=== PATIENT | female | born 1985 | race Caucasian/White ===

== ENCOUNTER 2017-08-11 22:48 | Inpatient (IN) | payer OTHER ==
[~2017-08-11] VITALS: Ht 162.6 cm; Wt 80.3 kg
[2017-08-11 23:00] VITALS: BP 120/69
[2017-08-11 23:28] LABS: BILIRUBIN,URINE NEGATIVE (NEGATIVE); KETONES,URINE NEGATIVE (NEGATIVE); LEUKOCYTE ESTERASE ,URINE 3+ (NEGATIVE); NITRITE,URINE POSITIVE (NEGATIVE); PH,URINE 7 (5-9); PROTEIN,URINE 1+ (NEGATIVE); UROBILINOGEN,URINE 1 MG/DL (NORMAL)
[2017-08-11] MEDS ORDERED: METOCLOPRAMIDE INJ 10 MG/2 ML (REGLAN) IV ONE (23:30)
[2017-08-11] MEDS ORDERED: FAMOTIDINE 20MG/2ML IV (PEPCID) IV ONE (23:30)
[2017-08-11] MEDS ORDERED: CITRIC ACID/SOB CIT (BICITRA) 30 ML UDC PO ONE (23:30)
--- NOTE | 2017-08-11 23:34 | History & Physical-OB ---
OB - Chief Complaint & HPI Date/Time Date of Admission: Date of Admission: Aug 11, 2017 at 23:10 Time Seen by Provider: 00:00 Chief Complaint/History OB-Reason for Admission/Chief: Onset of Labor Hx : 7 Hx Para: 6 Hx Last Menstrual Period: 11/19/16 Expected Date of Delivery: Aug 26, 2017 Gestational Age in Weeks: 38 Gestational Age in Days: 0 Other reason for admission: this is a 32-year-old 7 para 6 female with no local physician who presented with complaints of rupture of membranes approximately 10 p.m. The patient states she has been having pain off and on for about 6 hours. [id number] in [place]. She states that she saw this person 4 days prior to arrival and was "cleared to go". The patient has a previous history of 5 spontaneous vaginal deliveries and then one 2 years ago of a 34 week failure to progress with nonreassuring status. She was told 4 days ago that her baby was "sideways" and that she did not be able to deliver vaginally. She has had no vaginal bleeding. She is reportedly group B strep positive and has been through all of her pregnancies. Past medical history is significant for a seizure disorder. She states these are "mild", and she is supposed to be taking Tegretol. She states however that she is not taking this during her . She states that she take it because it made her sleepy. That she does reportedly take a sleeping pill. She states her last seizure was 3 weeks ago, after she ran into a wall while chasing her children. She also has a previous history of hepatitis C with no treatment. She states she found out with her 4 years ago. She does not know her status. She does state that she has had a liver biopsy and has a "mass in her liver", and she had this mass removed. She states the "check it every 6 months" she has a history of cholecystectomy and then had residual stones in the liver" the pancreas" so sounds as though she had an ERCP. She does have a history of asthma but does not use her inhaler as she is supposed to. She reports no history of hospitalization or intubation. She reports an anaphylactic reaction to penicillin. Currently she is grossly ruptured. Gestational age is estimated based only on her recollection of last menstrual period and EDC. However fundal height today is 36-37. She reportedly is4 cm dilated based on nursing exam. She is chandni every 4-6 minutes. And these are becoming more painful and closer together. there has been no vaginal bleeding. On Spencer exam, she is not transverse. History of Labs labs have been drawn, including HbSAg, HIV, Hep C, Rubella, CBC, CMP. UDS Many are pending but labs as below... Laboratory Tests Test 08/11/17 23:20 08/11/17 23:25 Range/Units White Blood Count 16.9 H 4.3-11.0 10^3/uL Red Blood Count 3.51 L 4.35-5.85 10^6/uL Hemoglobin 10.9 L 11.5-16.0 G/DL Hematocrit 32 L 35-52 % Mean Corpuscular Volume 92 80-99 FL Mean Corpuscular Hemoglobin 31 25-34 PG Mean Corpuscular Hemoglobin Concent 34 32-36 G/DL Red Cell Distribution Width 12.8 10.0-14.5 % Platelet Count 242 130-400 10^3/uL Mean Platelet Volume 11.6 H 7.4-10.4 FL Neutrophils (%) (Auto) 79 H 42-75 % Lymphocytes (%) (Auto) 13 12-44 % Monocytes (%) (Auto) 7 0-12 % Eosinophils (%) (Auto) 1 0-10 % Basophils (%) (Auto) 0 0-10 % Neutrophils # (Auto) 13.3 H 1.8-7.8 X 10^3 Lymphocytes # (Auto) 2.2 1.0-4.0 X 10^3 Monocytes # (Auto) 1.2 H 0.0-1.0 X 10^3 Eosinophils # (Auto) 0.1 0.0-0.3 10^3/uL Basophils # (Auto) 0.0 0.0-0.1 10^3/uL Sodium Level 136 135-145 MMOL/L Potassium Level 3.4 L 3.6-5.0 MMOL/L Chloride Level 107 98-107 MMOL/L Carbon Dioxide Level 18 L 21-32 MMOL/L Anion Gap 11 5-14 MMOL/L Blood Urea Nitrogen 5 L 7-18 MG/DL Creatinine 0.62 0.60-1.30 MG/DL Estimat Glomerular Filtration Rate > 60 BUN/Creatinine Ratio 8 Glucose Level 131 H 70-105 MG/DL Calcium Level 8.9 8.5-10.1 MG/DL Total Bilirubin 0.8 0.1-1.0 MG/DL Aspartate Amino Transf (AST/SGOT) 11 5-34 U/L Alanine Aminotransferase (ALT/SGPT) 7 0-55 U/L Alkaline Phosphatase 207 H 40-136 U/L Total Protein 6.4 6.4-8.2 GM/DL Albumin 2.9 L 3.2-4.5 GM/DL Urine Color YELLOW Urine Clarity VERY CLOUDY H Urine pH 7 5-9 Urine Specific [place] 1.015 L 1.016-1.022 Urine Protein 1+ H NEGATIVE Urine Glucose (UA) NEGATIVE NEGATIVE Urine Ketones NEGATIVE NEGATIVE Urine Nitrite POSITIVE H NEGATIVE Urine Bilirubin NEGATIVE NEGATIVE Urine Urobilinogen 1 NORMAL MG/DL Urine Leukocyte Esterase 3+ H NEGATIVE Urine RBC (Auto) 3+ H NEGATIVE Urine RBC 5-10 H /HPF Urine WBC 25-50 H /HPF Urine Squamous Epithelial Cells 5-10 /HPF Urine Crystals NONE /LPF Urine Amorphous Sediment LARGE ADALBERTO URATES H /LPF Urine Bacteria FEW H /HPF Urine Casts NONE /LPF Urine Mucus NEGATIVE /LPF Urine Culture Indicated YES Urine Opiates Screen NEGATIVE NEGATIVE Urine Oxycodone Screen NEGATIVE NEGATIVE Urine Methadone Screen NEGATIVE NEGATIVE Urine Propoxyphene Screen NEGATIVE NEGATIVE Urine Barbiturates Screen NEGATIVE NEGATIVE Ur Tricyclic Antidepressants Screen NEGATIVE NEGATIVE Urine Phencyclidine Screen NEGATIVE NEGATIVE Urine Amphetamines Screen POSITIVE H NEGATIVE Urine Methamphetamines Screen NEGATIVE NEGATIVE Urine Benzodiazepines Screen NEGATIVE NEGATIVE Urine Cocaine Screen NEGATIVE NEGATIVE Urine Cannabinoids Screen NEGATIVE NEGATIVE Allergies and Home Medications Allergies Coded Allergies: Penicillins (Verified Allergy, Severe, ANAPHYLAXIS, 08/11/17) OB - History Hx of Present Ultrasounds: Other (unknown. Does report having an ultrasound to give her the due date. She states that this was the only one she had during the .) Obstetrical Complications: Other (unknown) Medical Complications: Other (previous history of hepatitis C untreated. history of asthma, history of group B strep.) Information Induced Hypertension: Yes (does report a history of preeclampsia) Maternal Gestational Diabetes: No Hemorrhage: No Obstetrical History Hx : 7 Hx Para: 6 (she reports that this is the furthest she has gotten with any . Her last was reportedly at 34 weeks. But we have no records) Number of Living Children: 6 Hx Termination: No Hx Multiple Gestation: No Hx Ectopic : No Hx Stillbirth: No Hx Complication: Yes Hx Induced Hypertens: Yes Hx Maternal Gestational Diabet: No Hx Hemorrhage: Yes (with last ) Delivery History Hx Dystocia: No Hx Forceps Assisted Delivery: No Hx Vacuum Extraction Assisted: No Hx Placenta Abnormality: No Hx Distress: Yes Hx Large For Gestational Age I: No Hx Small for Gestational Age I: No Hx Section: Yes Hx Vaginal Delivery Post C-Sec: No Hx Blood Disorders: No Adverse Rxn to Tranfusion: No Patient Past Medical History nc Social History/Family History HIV/AIDS: No Recent Infectious Disease Expo: No Sexually Transmitted Disease: No (unknown) Alcohol Use: Past History Recreational Drug Use: Yes (reports no history of drug use) Smoking Cessation: Current every day smoker Immunizations Hepatitis A: No Hepatitis B: No Rubella: unknown RPR/VDRL: Unknown GBS Status: Positive HBsAG: Unknown OB - Admission Exam Physical Exam Vitals: see RN notes Heart: Rhythm Normal Lungs: Clear, Equal Abdomen: Gravid (FH 37) Extremities: Normal Reflexes: Normal Cervical Dilatation: 4cm Effacement: 75% Station: -1 Membranes: Ruptured Amniotic Fluid: Clear Heart Rate: 130's Decelerations: No Decelerations Short Term Variability: Present Penitentiary Variability: Average (6-25) Contractions on Admission: 6-10 Minutes Apart Intensity: Moderate Labs Laboratory Tests Test 08/11/17 23:25 Range/Units OB - Assessment/Plan/Diagnosis Assessment Assessment: active labor, rupture of membranes Plan Plan: Section Other Plan Plan emergency section. Risks of bleeding, infection, injury to bowel , bladder or ureter. Prophylactic SCDs. Vancomycin given for GBS and history of anaphylaxis. Zithromax due to ROM and unknown chlamydia. Hep C Possible seizure disorder + methamphetamine MARGARETTE TERRY DO Aug 11, 2017 23:34
[2017-08-11] MEDS ORDERED: AZITHROMYCIN 500 MG (ZITHROMAX) VIAL ONE (23:38)
[2017-08-11] MEDS ORDERED: NS (IVPB) 250 ML ONE ×2 (23:39→23:40)
[2017-08-11 23:40] LABS: WBC,URINE 25-50 /HPF
[2017-08-11] MEDS ORDERED: VANCOMYCIN 1000 MG/VIAL ONE (23:40)
[2017-08-11 23:42] LABS: BASOPHILS % (AUTO) 0 % (0-10); EOSINOPHILS # (AUTO) 0.1 10^3/uL (0.0-0.3); EOSINOPHILS % (AUTO) 1 % (0-10); LYMPHOCYTES # (AUTO) 2.2 X 10^3 (1.0-4.0); LYMPHOCYTES % (AUTO) 13 % (12-44); MEAN CORPUSCULAR HEMOGLOBIN 31 PG (25-34); MEAN CORPUSCULAR HGB CONC 34 G/DL (32-36); MEAN CORPUSCULAR VOLUME 92 FL (80-99); MEAN PLATELET VOLUME 11.6 FL (7.4-10.4); MONOCYTES # (AUTO) 1.2 X 10^3 (0.0-1.0); MONOCYTES % (AUTO) 7 % (0-12); NEUTROPHILS # (AUTO) 13.3 X 10^3 (1.8-7.8); NEUTROPHILS % (AUTO) 79 % (42-75); PLATELET COUNT 242 10^3/uL (130-400); RED BLOOD COUNT 3.51 10^6/uL (4.35-5.85); RED CELL DISTRIBUTION WIDTH 12.8 % (10.0-14.5); WHITE BLOOD COUNT 16.9 10^3/uL (4.3-11.0)
[2017-08-11] MEDS ORDERED: VANCOMYCIN INJECTION 2,000 MG in NS IV 500 ML 500 ML IV ONE (23:45)
[2017-08-11] MEDS ORDERED: AZITHROMYCIN INJECTION 500 MG in NS (IVPB) 250 ML IV ONE (23:45)
[2017-08-11 23:55] LABS: ALANINE AMINOTRANSFERASE 7 U/L (0-55); ALBUMIN 2.9 GM/DL (3.2-4.5); ANION GAP 11 MMOL/L (5-14); ASPARTATE AMINO TRANSFERASE 11 U/L (5-34); BILIRUBIN,TOTAL 0.8 MG/DL (0.1-1.0); BLOOD UREA NITROGEN 5 MG/DL (7-18); BUN/CREATININE RATIO 8; CALCIUM 8.9 MG/DL (8.5-10.1); CARBON DIOXIDE 18 MMOL/L (21-32); CHLORIDE 107 MMOL/L (98-107); CREATININE SERUM 0.62 MG/DL (0.60-1.30); GFR ESTIMATED > 60; GLUCOSE 131 MG/DL (70-105); POTASSIUM 3.4 MMOL/L (3.6-5.0); SODIUM 136 MMOL/L (135-145); TOTAL PROTEIN 6.4 GM/DL (6.4-8.2)
[2017-08-11] MEDS: LACTATED RINGERS 1,000 ML IV PRN (23:55)
[2017-08-12] MEDS ORDERED: ONDANSETRON 4 MG/2 ML (SDV) Z0FRAN ONE (00:02)
[2017-08-12] MEDS ORDERED: OXYTOCIN/NORMAL SALINE 500 ML IV ONE (00:03)
[2017-08-12] MEDS ORDERED: fentaNYL INJECTION 100 MCG/2 ML AMP ONE (00:03)
[2017-08-12 00:19] LABS: BASOPHILS % (MANUAL) 1 %; LYMPHOCYTES % (MANUAL) 19 %; NEUTROPHILS % (MANUAL) 78 %
[2017-08-12] MEDS ORDERED: KETAMINE HCL 100 MG/ML 5 ML VIAL ONE (00:27)
[2017-08-12] MEDS ORDERED: LACTATED RINGERS 1,000 ML IV ONE (00:57)
[2017-08-12] MEDS: LACTATED RINGERS 1,000 ML IV PRN (01:08)
[2017-08-12] MEDS ORDERED: DEXAMETHASONE 10 MG/ML (DECADRON) 1 ML VIAL ONE (01:09)
[2017-08-12] MEDS ORDERED: diphenhydrAMINE 50 MG/ML INJ (BENADRYL) ONE (01:09)
[2017-08-12] MEDS ORDERED: OXYTOCIN/NORMAL SALINE 500 ML IV SCH (01:12)
[2017-08-12] MEDS ORDERED: D5 LR IV SOLUTION 1,000 ML IV SCH (01:12)
[2017-08-12] MEDS ORDERED: MEASLES,MUMPS,RUBELLA 1 EA INJ SC SCH (01:15)
[2017-08-12] MEDS ORDERED: TETANUS,DIPTH,PERTUSS P/F (BOOSTRIX) 0.5 ML VIAL IM SCH (01:15)
[2017-08-12] MEDS ORDERED: ONDANSETRON 4 MG/2 ML (SDV) Z0FRAN IVP PRN (01:15)
[2017-08-12] MEDS ORDERED: HYDROmorphone (DILAUDID) 2 MG/ML VIAL IVP PRN (01:15)
--- NOTE | 2017-08-12 01:17 | Cesarean Section Operative ---
Procedure Procedure Note Pre-operative Diagnosis: Pamela Awan is a 32 /Para 7 / 6, Gestational Age 38 weeks, No local physiciaion, ROM, labor, G BS +, Hep C + Post-operative Diagnosis: same Procedure: Repeat low transverse section Physician: MARGARETTE TERRY Log Inspector: CHRISTEN Palacios Estimated blood loss: 600 mL Disposition: stable Findings: Viable [male infant, Apgars 8/9, weight 7#9oz, intact placenta, 3vc with true know, normal appearing uterus, tubes, and ovaries. Indications:Pamela Awan is a 32 /Para 7 / 6,Gestational Age 38 weeks, No local physiciaion, ROM, labor, G BS +, Hep C + Procedure Details: The patient was seen in pre-op and the procedure was discussed with the patient in full, including the risks, benefits, and alternatives. All questions were answered. The patient was taken to the operating room and a time out was performed, verifying patient and procedure. After spinal anesthesia was placed by our anesthesia colleagues, the patient was placed in the dorsal supine with leftward tilt for uterine displacement.~ Her abdomen was then prepped and draped in the typical sterile fashion. A Pfannenstiel skin incision was made using a scalpel and carried down through the underlying fascia. The fascia was incised in the midline and tented up using Nella clamps. On both the inferior and superior fascia side the rectus muscle was dissected off bluntly and sharply using El scissors. The peritoneum was identified and entered bluntly in the midline. This was then stretched laterally using manual strength. After entering the abdominal cavity and confirming lack of intraperitoneal adhesions, a large Harvey retractor was placed and the lower uterine segment was visualized. A bladder flap was created with the use of Metzenbaum scissors.~ A scalpel was utilized to make a low transverse uterine incision. Amniotomy was performed with an Allis clamp with return of clear fluid. The 's head was grasped and brought to the level of the incision. Fundal pressure was applied and was delivered without difficulty. Mouth and nares were suctioned with bulb suction. After the umbilical cord was clamped and cut, the was handed off to the pediatric staff. A sample of cord blood was then obtained. The placenta was delivered intact via uterine massage. The uterus was exteriorized and cleared of all clots and debris. The uterine incision was closed using 0 Vicryl in a running locked fashion. A second imbricated layer was placed using 0 Vicryl in a running fashion as well. The uterus was flexed forward and the posterior rectouterine space was inspected and cleared of all clots and debris. Again the hysterotomy site was examined and hemostasis was observed. The bilateral tubes and ovaries appeared normal. The uterus was placed back into the abdominal cavity and abdominal gutters were cleared of all clots and debris. A final check of the uterine incision showed it to be hemostatic. The peritoneum was closed using 3-0 Vicryl in a running fashion. The fascia was closed with 0 Vicryl in a running fashion. The subcutaneous space was hemostatic, and irrigated. The subcutaneous space was closed with 3-0 Vicryl in several single interrupted stitches. The skin was then closed using 4- 0 Monocryl in a running subcuticular fashion. The skin edges were reapproximated together and were hemostatic. A pressure dressing was applied. All sponge, lap and needle counts were correct at the end of the procedure per nursing. Vitals - Labs Labs Laboratory Tests 08/11/17 23:20: White Blood Count 16.9H, Red Blood Count 3.51L, Hemoglobin 10.9L, Hematocrit 32L , Mean Corpuscular Volume 92, Mean Corpuscular Hemoglobin 31, Mean Corpuscular Hemoglobin Concent 34, Red Cell Distribution Width 12.8, Platelet Count 242, Mean Platelet Volume 11.6H, Neutrophils (%) (Auto) 79H, Lymphocytes (%) (Auto) 13, Monocytes (%) (Auto) 7, Eosinophils (%) (Auto) 1, Basophils (%) (Auto) 0, Neutrophils # (Auto) 13.3H, Lymphocytes # (Auto) 2.2, Monocytes # (Auto) 1.2H, Eosinophils # (Auto) 0.1, Basophils # (Auto) 0.0, Neutrophils % (Manual) 78, Lymphocytes % (Manual) 19, Monocytes % (Manual) 2, Basophils % (Manual) 1, Blood Morphology Comment NORMAL, Sodium Level 136, Potassium Level 3.4L, Chloride Level 107, Carbon Dioxide Level 18L, Anion Gap 11, Blood Urea Nitrogen 5L, Creatinine 0.62, Estimat Glomerular Filtration Rate > 60, BUN/Creatinine Ratio 8, Glucose Level 131H, Calcium Level 8.9, Total Bilirubin 0.8, Aspartate Amino Transf (AST/SGOT) 11, Alanine Aminotransferase (ALT/SGPT) 7, Alkaline Phosphatase 207H, Total Protein 6.4, Albumin 2.9L 08/11/17 23:25: Urine Color YELLOW, Urine Clarity VERY CLOUDYH, Urine pH 7, Urine Specific [place] 1.015L, Urine Protein 1+H, Urine Glucose (UA) NEGATIVE, Urine Ketones NEGATIVE, Urine Nitrite POSITIVEH, Urine Bilirubin NEGATIVE, Urine Urobilinogen 1, Urine Leukocyte Esterase 3+H, Urine RBC (Auto) 3+H, Urine RBC 5-10H, Urine WBC 25-50H, Urine Squamous Epithelial Cells 5-10, Urine Crystals NONE, Urine Amorphous Sediment LARGE ADALBERTO URATESH, Urine Bacteria FEWH, Urine Casts NONE, Urine Mucus NEGATIVE, Urine Culture Indicated YES, Urine Opiates Screen NEGATIVE , Urine Oxycodone Screen NEGATIVE, Urine Methadone Screen NEGATIVE, Urine Propoxyphene Screen NEGATIVE, Urine Barbiturates Screen NEGATIVE, Ur Tricyclic Antidepressants Screen NEGATIVE, Urine Phencyclidine Screen NEGATIVE, Urine Amphetamines Screen POSITIVEH, Urine Methamphetamines Screen NEGATIVE, Urine Benzodiazepines Screen NEGATIVE, Urine Cocaine Screen NEGATIVE, Urine Cannabinoids Screen NEGATIVE 08/12/17 00:01: MARGARETTE TERRY DO Aug 12, 2017 01:17
[2017-08-12] MEDS: KETOROLAC 30 MG/ML VIAL IVP SCH ×3 (03:09→19:48)
[2017-08-12] MEDS ORDERED: diphenhydrAMINE 50 MG/ML INJ (BENADRYL) IV PRN (03:15)
[2017-08-12] MEDS ORDERED: ONDANSETRON 4 MG/2 ML (SDV) Z0FRAN IV PRN (03:15)
[2017-08-12] MEDS ORDERED: METOCLOPRAMIDE INJ 10 MG/2 ML (REGLAN) IV PRN (03:15)
[2017-08-12] MEDS ORDERED: NALOXONE 0.4 MG/ML 1 ML (NARCAN) VIAL IV PRN ×2 (03:15)
[2017-08-12] MEDS ORDERED: NALOXONE 0.4 MG/ML 1 ML (NARCAN) VIAL ONE (03:37)
[2017-08-12] MEDS: HYDROcodone/APAP 5 MG/325 MG (LORTAB) TAB PO PRN ×5 (04:38→23:34)
[2017-08-12] MEDS ORDERED: CATHETER FLUSH 10 ML SYR IV SCH (06:00)
[2017-08-12 06:29] VITALS: BP 93/56
[2017-08-12] MEDS ORDERED: INFLUENZA TRIvalent 2017-2018 0.5 ML/45 MCG SYR IM ONE (07:30)
[2017-08-12] MEDS: DOCUSATE SODIUM 100 MG (COLACE) CAP PO SCH ×2 (08:28→22:06)
[2017-08-12] MEDS: NITROFURANTOIN 100 MG (MACROBID) CAPSULE PO SCH ×2 (08:28→22:06)
[2017-08-12 08:59] VITALS: BP 99/57
[2017-08-12 12:13] VITALS: BP 93/57
[2017-08-12] MEDS: IBUPROFEN 600 MG (MOTRIN) TAB PO SCH ×3 (15:48→22:06)
[2017-08-12 16:09] VITALS: BP 101/57
--- NOTE | 2017-08-12 16:28 | Anesthesia-Regional Post-Op ---
Regional Patient Condition Mental Status: Alert, Oriented x3 Circulation: Same as Pre-Op Headache: Absent Sensation: Full Recovery Motor Block: Absent Post Op Complications Complications None Follow Up Care/Instructions Patient Instructions None needed. Anesthesia/Patient Condition Patient is doing well, no complaints, stable vital signs, no apparent adverse anesthesia problems. No complications reported per nursing. PATRICIA THOMAS CRNA Aug 12, 2017 16:28
--- NOTE | 2017-08-12 16:32 | Postpartum Progress Note ---
Post Op Post-operative Day #0 s/p RLTCS emergency cs due to labor/ROM. No local physician. Hep C without treatment. GBS +, Subjective: Patient is without complaints. Ambulating, voiding after miller removed. Tolerating a regular diet without nausea or vomiting. Normal lochia. Pain is well controlled with oral pain medications. Passing flatus. bottle feeding. UA consistent with UTI. PCN allergy. Treated preop with Vanc and zithromax for prophylaxis and ROM. Macrobid started for uti. Await sens. E Coli. Objective: Intake and Output 08/13/17 00:00 Intake Total 2172 ml Output Total 950 ml Balance 1222 ml Intake Oral 222 ml IV Total 1950 ml Output Urine Total 450 ml Estimated Blood Loss 500 ml Vital Sign - Last 12Hours 08/12/17 08/12/17 08/12/17 08/12/17 06:29 08:56 08:56 08:59 Temp 98.0 97.8 97.8 97.8 Pulse 45 66 Resp 18 18 B/P (MAP) 93/56 99/57 Pulse Ox 98 O2 Delivery Room Air 08/12/17 08/12/17 12:13 16:09 Temp 97.2 97.5 Pulse 73 81 Resp 18 18 B/P (MAP) 93/57 101/57 Pulse Ox 100 100 O2 Delivery Room Air Room Air Laboratory Tests Test 08/11/17 23:20 08/11/17 23:25 08/12/17 00:01 Range/Units White Blood Count 16.9 H 4.3-11.0 10^3/uL Red Blood Count 3.51 L 4.35-5.85 10^6/uL Hemoglobin 10.9 L 11.5-16.0 G/DL Hematocrit 32 L 35-52 % Mean Corpuscular Volume 92 80-99 FL Mean Corpuscular Hemoglobin 31 25-34 PG Mean Corpuscular Hemoglobin Concent 34 32-36 G/DL Red Cell Distribution Width 12.8 10.0-14.5 % Platelet Count 242 130-400 10^3/uL Mean Platelet Volume 11.6 H 7.4-10.4 FL Neutrophils (%) (Auto) 79 H 42-75 % Lymphocytes (%) (Auto) 13 12-44 % Monocytes (%) (Auto) 7 0-12 % Eosinophils (%) (Auto) 1 0-10 % Basophils (%) (Auto) 0 0-10 % Neutrophils # (Auto) 13.3 H 1.8-7.8 X 10^3 Lymphocytes # (Auto) 2.2 1.0-4.0 X 10^3 Monocytes # (Auto) 1.2 H 0.0-1.0 X 10^3 Eosinophils # (Auto) 0.1 0.0-0.3 10^3/uL Basophils # (Auto) 0.0 0.0-0.1 10^3/uL Neutrophils % (Manual) 78 % Lymphocytes % (Manual) 19 % Monocytes % (Manual) 2 % Basophils % (Manual) 1 % Blood Morphology Comment NORMAL Sodium Level 136 135-145 MMOL/L Potassium Level 3.4 L 3.6-5.0 MMOL/L Chloride Level 107 98-107 MMOL/L Carbon Dioxide Level 18 L 21-32 MMOL/L Anion Gap 11 5-14 MMOL/L Blood Urea Nitrogen 5 L 7-18 MG/DL Creatinine 0.62 0.60-1.30 MG/DL Estimat Glomerular Filtration Rate > 60 BUN/Creatinine Ratio 8 Glucose Level 131 H 70-105 MG/DL Calcium Level 8.9 8.5-10.1 MG/DL Total Bilirubin 0.8 0.1-1.0 MG/DL Aspartate Amino Transf (AST/SGOT) 11 5-34 U/L Alanine Aminotransferase (ALT/SGPT) 7 0-55 U/L Alkaline Phosphatase 207 H 40-136 U/L Total Protein 6.4 6.4-8.2 GM/DL Albumin 2.9 L 3.2-4.5 GM/DL Urine Color YELLOW Urine Clarity VERY CLOUDY H Urine pH 7 5-[address] 1.015 L 1.016-1.022 Urine Protein 1+ H NEGATIVE Urine Glucose (UA) NEGATIVE NEGATIVE Urine Ketones NEGATIVE NEGATIVE Urine Nitrite POSITIVE H NEGATIVE Urine Bilirubin NEGATIVE NEGATIVE Urine Urobilinogen 1 NORMAL MG/DL Urine Leukocyte Esterase 3+ H NEGATIVE Urine RBC (Auto) 3+ H NEGATIVE Urine RBC 5-10 H /HPF Urine WBC 25-50 H /HPF Urine Squamous Epithelial Cells 5-10 /HPF Urine Crystals NONE /LPF Urine Amorphous Sediment LARGE ADALBERTO URATES H /LPF Urine Bacteria FEW H /HPF Urine Casts NONE /LPF Urine Mucus NEGATIVE /LPF Urine Culture Indicated YES Urine Opiates Screen NEGATIVE NEGATIVE Urine Oxycodone Screen NEGATIVE NEGATIVE Urine Methadone Screen NEGATIVE NEGATIVE Urine Propoxyphene Screen NEGATIVE NEGATIVE Urine Barbiturates Screen NEGATIVE NEGATIVE Ur Tricyclic Antidepressants Screen NEGATIVE NEGATIVE Urine Phencyclidine Screen NEGATIVE NEGATIVE Urine Amphetamines Screen POSITIVE H NEGATIVE Urine Methamphetamines Screen NEGATIVE NEGATIVE Urine Benzodiazepines Screen NEGATIVE NEGATIVE Urine Cocaine Screen NEGATIVE NEGATIVE Urine Cannabinoids Screen NEGATIVE NEGATIVE Physical Exam: General - Alert and oriented, no apparent distress Abdomen - Soft, appropriately tender to palpation, non-distended, fundus firm at umbilicus Incision - clean, dry and intact; no erythema or induration, no drainage Extremities - no edema, negative Eliel's bilaterally Assessment: 1. post-operative day # 1, status post RLTCS. Recovering well, hemodynamically stable 2. antepartum anemia 3. E Coli UTI 4. + UDS, amphetamines 5. Hep C + per her report; no meds, no treatment 6. h/o seizure disorder per her report; no meds, no treatment 7. h/o asthma per her report; no meds, no treatment Plan: Routine post-operative care. Encourage breast feeding. Encourage ambulation. VTE prophylaxis: SCDs. Ferrous sulfate supplementation. Plan for discharge tomorrow or Monday Vitals - Labs Vital Signs - I&O Vital Signs Date Time Temp Pulse Resp B/P (MAP) Pulse Ox O2 Delivery O2 Flow Rate FiO2 08/12/17 16:09 97.5 81 18 101/57 100 Room Air 08/12/17 12:13 97.2 73 18 93/57 100 Room Air 08/12/17 08:59 97.8 66 18 99/57 98 Room Air 08/12/17 08:56 97.8 08/12/17 08:56 97.8 08/12/17 06:29 98.0 45 18 93/56 08/11/17 23:00 98.2 109 18 120/69 Room Air Labs Laboratory Tests 08/11/17 23:20: White Blood Count 16.9H, Red Blood Count 3.51L, Hemoglobin 10.9L, Hematocrit 32L , Mean Corpuscular Volume 92, Mean Corpuscular Hemoglobin 31, Mean Corpuscular Hemoglobin Concent 34, Red Cell Distribution Width 12.8, Platelet Count 242, Mean Platelet Volume 11.6H, Neutrophils (%) (Auto) 79H, Lymphocytes (%) (Auto) 13, Monocytes (%) (Auto) 7, Eosinophils (%) (Auto) 1, Basophils (%) (Auto) 0, Neutrophils # (Auto) 13.3H, Lymphocytes # (Auto) 2.2, Monocytes # (Auto) 1.2H, Eosinophils # (Auto) 0.1, Basophils # (Auto) 0.0, Neutrophils % (Manual) 78, Lymphocytes % (Manual) 19, Monocytes % (Manual) 2, Basophils % (Manual) 1, Blood Morphology Comment NORMAL, Sodium Level 136, Potassium Level 3.4L, Chloride Level 107, Carbon Dioxide Level 18L, Anion Gap 11, Blood Urea Nitrogen 5L, Creatinine 0.62, Estimat Glomerular Filtration Rate > 60, BUN/Creatinine Ratio 8, Glucose Level 131H, Calcium Level 8.9, Total Bilirubin 0.8, Aspartate Amino Transf (AST/SGOT) 11, Alanine Aminotransferase (ALT/SGPT) 7, Alkaline Phosphatase 207H, Total Protein 6.4, Albumin 2.9L 08/11/17 23:25: Urine Color YELLOW, Urine Clarity VERY CLOUDYH, Urine pH 7, Urine Specific Lane 1.015L, Urine Protein 1+H, Urine Glucose (UA) NEGATIVE, Urine Ketones NEGATIVE, Urine Nitrite POSITIVEH, Urine Bilirubin NEGATIVE, Urine Urobilinogen 1, Urine Leukocyte Esterase 3+H, Urine RBC (Auto) 3+H, Urine RBC 5-10H, Urine WBC 25-50H, Urine Squamous Epithelial Cells 5-10, Urine Crystals NONE, Urine Amorphous Sediment LARGE ADALBERTO URATESH, Urine Bacteria FEWH, Urine Casts NONE, Urine Mucus NEGATIVE, Urine Culture Indicated YES, Urine Opiates Screen NEGATIVE , Urine Oxycodone Screen NEGATIVE, Urine Methadone Screen NEGATIVE, Urine Propoxyphene Screen NEGATIVE, Urine Barbiturates Screen NEGATIVE, Ur Tricyclic Antidepressants Screen NEGATIVE, Urine Phencyclidine Screen NEGATIVE, Urine Amphetamines Screen POSITIVEH, Urine Methamphetamines Screen NEGATIVE, Urine Benzodiazepines Screen NEGATIVE, Urine Cocaine Screen NEGATIVE, Urine Cannabinoids Screen NEGATIVE 08/12/17 00:01: Microbiology 08/11/17 Urine Culture - Preliminary, Resulted Escherichia Coli Group B Streptococci MARGARETTE TERRY DO Aug 12, 2017 16:32
[2017-08-12 20:00] VITALS: BP 100/57
[2017-08-13 00:30] VITALS: BP 103/58
[2017-08-13 04:47] VITALS: BP 92/55
[2017-08-13] MEDS: HYDROcodone/APAP 5 MG/325 MG (LORTAB) TAB PO PRN ×2 (04:47→09:11)
[2017-08-13] MEDS: IBUPROFEN 600 MG (MOTRIN) TAB PO SCH ×4 (04:47→22:38)
[2017-08-13 05:37] LABS: BASOPHILS % (AUTO) 0 % (0-10); EOSINOPHILS # (AUTO) 0.2 10^3/uL (0.0-0.3); EOSINOPHILS % (AUTO) 1 % (0-10); LYMPHOCYTES # (AUTO) 3.6 X 10^3 (1.0-4.0); LYMPHOCYTES % (AUTO) 22 % (12-44); MEAN CORPUSCULAR HEMOGLOBIN 31 PG (25-34); MEAN CORPUSCULAR HGB CONC 33 G/DL (32-36); MEAN CORPUSCULAR VOLUME 94 FL (80-99); MEAN PLATELET VOLUME 11.4 FL (7.4-10.4); MONOCYTES % (AUTO) 6 % (0-12); NEUTROPHILS # (AUTO) 11.6 X 10^3 (1.8-7.8); NEUTROPHILS % (AUTO) 71 % (42-75); PLATELET COUNT 234 10^3/uL (130-400); RED CELL DISTRIBUTION WIDTH 12.7 % (10.0-14.5); WHITE BLOOD COUNT 16.3 10^3/uL (4.3-11.0)
[2017-08-13] MEDS: NITROFURANTOIN 100 MG (MACROBID) CAPSULE PO SCH (09:11)
[2017-08-13] MEDS: DOCUSATE SODIUM 100 MG (COLACE) CAP PO SCH ×2 (09:11→20:37)
[2017-08-13 10:59] VITALS: BP 78/52
--- NOTE | 2017-08-13 13:20 | Postpartum Progress Note ---
Post Op Post-operative Day 1 a/p RLTCS, She reports needing a nicotine patch. Admits to 1/2 ppd smoking. States she has not smoked in "along time" though she is going downstairs frequently. Also states that pain medications don't last long enough. Had + UCG for amphetamines and she reports not taking "anything during her " and also no history of drug usage. However, today she states "I take 50 mg twice daily of adderall for adult ADHD". She states she told me when she was interviewed on admission, but at that time she did not admit to taking anything. Also states that she wasn't taking tegretol prescribed for seizure disorder. States it made her too tired and hadn't taken it during the . Subjective: Patient is with complaints. Ambulating, voiding after miller removed. Tolerating a regular diet without nausea or vomiting. Normal lochia. Pain is not well controlled with oral pain medications. Passing flatus. bottle. Objective: Laboratory Tests Test 08/13/17 05:20 Range/Units White Blood Count 16.3 H 4.3-11.0 10^3/uL Red Blood Count 3.00 L 4.35-5.85 10^6/uL Hemoglobin 9.3 L 11.5-16.0 G/DL Hematocrit 28 L 35-52 % Mean Corpuscular Volume 94 80-99 FL Mean Corpuscular Hemoglobin 31 25-34 PG Mean Corpuscular Hemoglobin Concent 33 32-36 G/DL Red Cell Distribution Width 12.7 10.0-14.5 % Platelet Count 234 130-400 10^3/uL Mean Platelet Volume 11.4 H 7.4-10.4 FL Neutrophils (%) (Auto) 71 42-75 % Lymphocytes (%) (Auto) 22 12-44 % Monocytes (%) (Auto) 6 0-12 % Eosinophils (%) (Auto) 1 0-10 % Basophils (%) (Auto) 0 0-10 % Neutrophils # (Auto) 11.6 H 1.8-7.8 X 10^3 Lymphocytes # (Auto) 3.6 1.0-4.0 X 10^3 Monocytes # (Auto) 1.0 0.0-1.0 X 10^3 Eosinophils # (Auto) 0.2 0.0-0.3 10^3/uL Basophils # (Auto) 0.0 0.0-0.1 10^3/uL Vital Sign - Last 12Hours 08/13/17 08/13/17 04:47 10:59 Temp 96.6 96.1 Pulse 81 66 Resp 18 18 B/P (MAP) 92/55 78/52 Pulse Ox 98 97 O2 Delivery Room Air Room Air Microbiology 08/11/17 Urine Culture - Final, Complete Escherichia Coli Group B Streptococci Physical Exam: General - Alert and oriented, no apparent distress Abdomen - Soft, appropriately tender to palpation, non-distended, fundus firm at umbilicus Incision - clean, dry and intact; no erythema or induration, no drainage Extremities - no edema, negative Eliel's bilaterally Assessment: 1. post-operative day # 1, status post emergency RLTCS. Recovering well, hemodynamically stable 2. Mild Acute blood loss anemia 3. + UDS amphetamines (may be due to adderall usage) 4. + Smoking history 5. Blood pressures low, though she is asymptomatic and blood pressures low on admission (80/50s) so unlikely due to blood loss. Heart rate 60s. 6. UTI, E Coli, sens Macrodantin 7. history of Hep C, serology and viral load pending, PN labs pending. Plan: Routine post-operative care. Change to percocet Nicotine patch Encourage ambulation. VTE prophylaxis: SCDs. Ferrous sulfate supplementation. Plan for discharge tomorrow. Vitals - Labs Vital Signs - I&O Vital Signs Date Time Temp Pulse Resp B/P (MAP) Pulse Ox O2 Delivery O2 Flow Rate FiO2 08/13/17 10:59 96.1 66 18 78/52 97 Room Air 08/13/17 04:47 96.6 81 18 92/55 98 Room Air 08/13/17 00:30 97.3 88 20 103/58 99 Room Air 08/12/17 20:00 96.9 96 18 100/57 100 Room Air 08/12/17 16:09 97.5 81 18 101/57 100 Room Air Labs Laboratory Tests 08/13/17 05:20: White Blood Count 16.3H, Red Blood Count 3.00L, Hemoglobin 9.3L, Hematocrit 28L , Mean Corpuscular Volume 94, Mean Corpuscular Hemoglobin 31, Mean Corpuscular Hemoglobin Concent 33, Red Cell Distribution Width 12.7, Platelet Count 234, Mean Platelet Volume 11.4H, Neutrophils (%) (Auto) 71, Lymphocytes (%) (Auto) 22 , Monocytes (%) (Auto) 6, Eosinophils (%) (Auto) 1, Basophils (%) (Auto) 0, Neutrophils # (Auto) 11.6H, Lymphocytes # (Auto) 3.6, Monocytes # (Auto) 1.0, Eosinophils # (Auto) 0.2, Basophils # (Auto) 0.0 Microbiology 08/11/17 Urine Culture - Final, Complete Escherichia Coli Group B Streptococci MARGARETTE TERRY DO Aug 13, 2017 13:20
[2017-08-13] MEDS ORDERED: NICOTINE 14 MG (NICODERM) PATCH TD SCH (14:00)
[2017-08-13] MEDS: oxyCODONE/APAP 7.5-325 MG (PERCOCET 7.5) TABLET PO PRN ×3 (14:41→22:38)
[2017-08-13 17:06] VITALS: BP 88/57
[2017-08-13 20:30] VITALS: BP 101/67
[2017-08-14 01:45] VITALS: BP 109/62
[2017-08-14] MEDS: oxyCODONE/APAP 7.5-325 MG (PERCOCET 7.5) TABLET PO PRN ×4 (03:25→15:20)
[2017-08-14] MEDS: IBUPROFEN 600 MG (MOTRIN) TAB PO SCH ×2 (07:20→14:38)
[2017-08-14] MEDS: NITROFURANTOIN 100 MG (MACROBID) CAPSULE PO SCH (07:20)
[2017-08-14 08:15] VITALS: BP 83/53
[2017-08-14] MEDS ORDERED: NICOTINE PATCH REMOVAL TP SCH (09:00)
[2017-08-14 12:30] LABS: HEPATITIS B SURFACE AB INDEX 62.89 mIU/mL (>=10.00)
--- NOTE | 2017-08-14 13:06 | Progress Note-Standard ---
Standard Progress Note Progress Notes/Assess & Plan Date Seen by Provider: Aug 14, 2017 Time Seen by Provider: 12:55 Progress/Assessment & Plan Pain better with Oxycodone. Bby has been transferred to [place] due to MADHU and heart murmur. Mother continues to deny any drug usage other than adderall 50 mg po bid. Will dc mother Hepatitis B and C serology and viral load pending. HIV pending, Rubella pending. Vital Sign - Last 12Hours 08/14/17 08/14/17 01:45 08:15 Temp 97.1 97.3 Pulse 89 79 Resp 18 20 B/P (MAP) 109/62 83/53 Pulse Ox 99 98 O2 Delivery Room Air Room Air A/P POD #2 s/p E RLTCS ROM (no sign or symptoms of prolonged ROM or infection) UTI (E Coli) antepartum and acute blood loss anemia Hep C Unknown drug use, admits to Adderall, UDS + amphetamine Smoking Plan discharge to home. 1 week incision check MARGARETTE TERRY DO Aug 14, 2017 13:06
[2017-08-14] MEDS ORDERED: IBUP-1773 PO (13:08)
[2017-08-14] MEDS ORDERED: NITR100C10 PO (13:08)
[2017-08-14] MEDS ORDERED: OXYC-464 PO (13:08)
[2017-08-14] MEDS ORDERED: FERR-84 PO (13:08)
--- NOTE | 2017-08-14 13:11 | Discharge Inst-Women's Service ---
Discharge Inst-Women's Serv Depart Medication/Instructions New, Converted or Re-Newed RX: RX on Chart Final Diagnosis no local physician previous section Rupture of membranes/labor GBS + E Coli UTI antepartum anemia Hepatitis C (self reported, not treated) + UDS Smoker Procedure - Emergency RLTCS acute blood loss anemia Consults/Follow Up Additional Follow Up: Yes (1 week for incision check 6 week pp exam with her previous provider) Activity Activity: Activity as Tolerated (no lifting over 25 lbs) Driving Instructions: No Driving for 1 Week NO SMOKING: NO SMOKING Nothing Inside Vagina: No Douching, No [place], No Tampons Diet Discharge Diet: No Restrictions Symptoms to Report to : Bleeding Excessive, Pain Increased, Fever Over 101 Degrees F, Vaginal Bleeding Increase, Cramps in Feet or Legs, Vaginal Discharge Foul For Any Problems or Questions: Contact Your Physician Skin/Wound Care Infection Signs and Symptoms: Increased Redness, Foul Odor of Wound, Increased Drainage, Skin Itchy or Has a Rash, Increased Swelling, Temperature Above 101 F Operative Area Clean and Dry: Keep Incision Clean/Dry Stitches/[place]/Dermabond: Dermabond Bathing Instructions: MARGARETTE Álvarez DO Aug 14, 2017 13:11
[2017-08-14 14:56] LABS: HCV INDEX >11.00 (0.00-0.79)
[2017-08-14 14:57] LABS: HEPATITIS B SURFACE AB INTERP Immune (Immune)
[2017-08-14 14:58] LABS: HIV AG AB SCREEN Non-Reactive (Non-Reactive)
[2017-08-14] MEDS ORDERED: INFLUENZA TRIvalent 2017-2018 0.5 ML/45 MCG SYR IM ONE (15:09)
[2017-08-16 15:43] LABS: HEP C COPIES ML Not Detected (<=11)
[2017-08-16 17:07] LABS: HEPATITIS C LOG ML Not Detected (Not Detected)
== END 2017-08-14 15:25 | disposition home or self-care (01) | DRG 765 ==
LOC: LDRP 22:48 → WSo 22:48 → LDRP 23:10
PROVIDERS: ADMIT Obstetrics & Gynecology; ATTEND Obstetrics & Gynecology
PROC: 10D00Z1 Extraction of Products of Conception, Low, Open Approach (ICD-10-PCS; principal; 2017-08-12 00:18)
DX: O99.333 Smoking (tobacco) complicating pregnancy, third trimester (principal); F17.210 Nicotine dependence, cigarettes, uncomplicated; O99.03 Anemia complicating the puerperium; D62 Acute posthemorrhagic anemia; O99.353 Diseases of the nervous system complicating pregnancy, third trimester; G40.909 Epilepsy, unspecified, not intractable, without status epilepticus; O99.513 Diseases of the respiratory system complicating pregnancy, third trimester; J45.909 Unspecified asthma, uncomplicated; O98.413 Viral hepatitis complicating pregnancy, third trimester; B19.20 Unspecified viral hepatitis C without hepatic coma; O99.820 Streptococcus B carrier state complicating pregnancy; O99.343 Other mental disorders complicating pregnancy, third trimester; F15.90 Other stimulant use, unspecified, uncomplicated; O23.43 Unspecified infection of urinary tract in pregnancy, third trimester; B96.20 Unspecified Escherichia coli [E. coli] as the cause of diseases classified elsewhere; O99.013 Anemia complicating pregnancy, third trimester; F90.9 Attention-deficit hyperactivity disorder, unspecified type; Z3A.38 38 weeks gestation of pregnancy; Z37.0 Single live birth; Z23 Encounter for immunization
CPT/HCPCS: 36415; 80053; 80306; 81000; 85007; 85025; 85027; 86703; 86706; 86762; 86803; 86850; 86900; 86901; 87088; 87186; 87340; 87522; 90707; 90715; 94664; 99212